=== PATIENT | male | born 1980 | race African-American/Black ===

== ENCOUNTER → 2024-04-26 | Outpatient (CLI) | payer SELFPAY | LOC: M OUTALCOH 07:29 | PROVIDERS: ATTEND Psychiatry & Neurology Psychiatry | DX: Z03.89 Encounter for observation for other suspected diseases and conditions ruled out (principal); Z72.0 Tobacco use ==

== ENCOUNTER 2024-05-06 15:00 | Outpatient (RCR) | payer SELFPAY | END 2024-05-10 | LOC: M OUTALCOH 15:00 | PROVIDERS: ATTEND Psychiatry & Neurology Psychiatry | DX: F12.10 Cannabis abuse, uncomplicated (principal); Z72.0 Tobacco use ==